=== PATIENT | female | born 1950 | race Caucasian/White ===

== ENCOUNTER 2016-08-08 07:43 | Day surgery (SDC) | payer OTHER ==
[2016-08-08] VITALS (18 sets, daily range): BP systolic 110–154; BP diastolic 58–73; PULSE 54–63; RESP 13–27; Ht 154.9 cm; Wt 64.6 kg
[~2016-08-08] VITALS: Ht 154.9 cm; Wt 64.6 kg
[2016-08-08] MEDS ORDERED: SOD CHLORIDE 0.9% 1,000 ML IV ONE (08:30)
[2016-08-08] MEDS ORDERED: MIDAZOLAM 1 MG/ML 2 ML INJ ONE (09:37)
[2016-08-08] MEDS ORDERED: LIDOCAINE 1% (MDV) 20 ML INJ ONE (09:37)
[2016-08-08] MEDS ORDERED: FENTAnyl 50 MCG/ML VIAL ONE (09:37)
--- NOTE | 2016-08-08 13:50 | RADRPT ---
PROCEDURE: CT guided liver biopsy. CLINICAL INDICATION: Liver mass. TECHNIQUE: Informed consent was obtained. The procedure, risks, benefits, complications and alternatives were explained to the patient. Risks including bleeding and infection were explained. The patient unders tood and was willing to proceed. A procedural pause was performed. The patient's name, date of [facility] h, and procedure to be performed were verified. One or more of the following dose reduction techni ques were used: Automated exposure control, adjustment of the mA and/or kV according to patient size , use of iterative reconstruction technique. Using local anesthetic, sterile technique and CT guidance, a 19-gauge needle was advanced into the l iver mass. Because only fluid was obtained, no biopsy was performed. Approximately 40 ml of dark b rown fluid was aspirated and sent for cytology analysis. The needle was removed. A postprocedural scan was performed. A dressing was applied. The patient tolerated procedure well. COMPARISON: None. FINDINGS: Initial images demonstrate the tip of the needle within the liver mass. Post biopsy images demonstrate no immediate complication. IMPRESSION: 1. Successful CT guided liver fluid collection aspiration. RPTAT: QQ .Johann Joaquin MD, Date Time Electronically viewed and signed by .Johann Joaquin MD, on 08/08/2016 13:49 .R/
== END 2016-08-08 13:10 | disposition home or self-care (01) ==
LOC: SDS 07:43
PROVIDERS: ATTEND Surgery Surgical Oncology
DX: R16.0 Hepatomegaly, not elsewhere classified (principal)
CPT/HCPCS: 47000; 77012; 88104; 88305; J2250; J3010; Z7610